=== PATIENT | male | born 1965 | race African-American/Black ===

== ENCOUNTER 2017-09-15 23:46 | Emergency (ER) | payer SELFPAY, OTHER ==
[2017-09-16] MEDS: cefTRIAXone IM 1 GM VIAL IM (00:29)
== END 2017-09-16 00:37 | disposition home or self-care (01) ==
LOC: ER 23:46
DX: J20.9 Acute bronchitis, unspecified (principal); I10 Essential (primary) hypertension
CPT/HCPCS: 96372; 99283-25; J0696

== ENCOUNTER 2018-06-04 00:49 | Emergency (ER) | payer SELFPAY ==
[~2018-06-04] VITALS: Ht 177.8 cm; Wt 113.4 kg
[2018-06-04 00:49] VITALS: BP 205/125
[~2018-06-04 00:49] MED LIST: AZIT250T6 PO; BENZ100C PO; HYDR-2758 PO; PRED20TA PO
[2018-06-04] MEDS ORDERED: PROM118S5 PO (01:25)
[2018-06-04] MEDS ORDERED: AZIT250T PO (01:25)
[2018-06-04] MEDS ORDERED: LORA10TA3 PO (01:25)
--- NOTE | 2018-06-04 04:14 | PHYS DOC ---
Past Medical History Past Medical History: Hypertension Past Surgical History: No Surgical History Alcohol Use: None Drug Use: None Adult General Chief Complaint Chief Complaint: SORE THROAT HPI HPI Patient is a 53 year old female who presents with sore throat, nasal congestion , rhinorrhea and right ear pain. Symptom onset was 2 days ago. No fever chills, nausea vomiting or sweats. No dysphagia or dysphonia or drooling. Patient has been taking gapb-lje-tcsrcpu cough medication with minimal relief. Of note, patient noted to be hypertensive 200s over low 100s. Patient states his blood pressure is normally well controlled and he is compliant with his lisinopril. Denies chest pain or shortness of breath. [] Review of Systems Review of Systems ROS as per HPI All other systems were reviewed and found to be within normal limits, except as documented in this note. Allergies Allergies Allergies Coded Allergies Type Severity Reaction Last Updated Verified No Known Drug Allergies 02/06/16 No Physical Exam Physical Exam Constitutional: Well developed, well nourished, no acute distress, non-toxic appearance. [] HENT: Normocephalic, atraumatic, bilateral external ears normal, oropharynx moist, a oropharyngeal erythema, no peritonsillar have access or uvula deviation. [] Eyes: PERRLA, EOMI, conjunctiva normal. [] Neck: Normal range of motion, no tenderness, no lymphadenopathy. [] Cardiovascular:Heart rate regular rhythm, no murmur. [] Lungs & Thorax: Bilateral breath sounds clear to auscultation. [] Abdomen: Bowel sounds normal, soft, no tenderness. [] Skin: Warm, dry [] Back: No tenderness, no CVA tenderness. [] Extremities: No tenderness, no cyanosis, no clubbing, ROM intact, no edema. [] Neurologic: Alert and oriented X 3, normal motor function, normal sensory function, no focal deficits noted. [] Psychologic: Affect normal, judgement normal, mood normal. [] Current Patient Data Vital Signs Vital Signs Date Time Temp Pulse Resp B/P (MAP) Pulse Ox O2 Delivery O2 Flow Rate FiO2 06/04/18 00:49 98.7 89 18 205/125 (151) 99 Room Air 98.7 EKG EKG [] Radiology/Procedures Radiology/Procedures [] Course & Med Decision Making Course & Med Decision Making Pertinent Labs and Imaging studies reviewed. (See chart for details) [Acute pharyngitis. Patient instructed to discontinue blood pressure medication take newly prescribed medications as directed and follow-up with PCP for reevaluation. Return precautions reviewed.] Gloria Disclaimer Gloria Disclaimer This electronic medical record was generated, in whole or in part, using a voice recognition dictation system. Departure Departure Impression: Primary Impression: Pharyngitis Disposition: HOME, SELF-CARE Condition: GOOD Patient Instructions: Sore Throat, Lauy-lz-Vpis Additional Instructions: Please increase fluids and take medications as directed. Avoid OTC cough medications as these may have and adverse impact on your blood pressure. Follow up with your PCP in 2-3 days for re-evaluation and to recheck blood pressure. Scripts Azithromycin (ZITHROMAX) 250 Mg Tablet 1 PKG PO UD, #6 TAB 2 pills by mouth day 1, one pill by mouth days 2 through 5 Prov: RADHA BETTENCOURT DO 06/04/18 Loratadine (LORATADINE) 10 Mg Tablet 1 TAB PO DAILY, #30 TAB 0 Refills Prov: RADHA BETTENCOURT DO 06/04/18 Promethazine Hcl/Codeine (PROMETHAZINE-CODEINE SYRUP) 118 Ml Syrup 5 ML PO Q4-6HRS, #120 ML Prov: RADHA BETTENCOURT DO 06/04/18 RADHA BETTENCOURT DO Jun 04, 2018 04:14
== END 2018-06-04 01:30 | disposition home or self-care (01) ==
LOC: ER 00:49
DX: J02.9 Acute pharyngitis, unspecified (principal); H92.01 Otalgia, right ear; I10 Essential (primary) hypertension
CPT/HCPCS: 99283

== ENCOUNTER 2018-06-09 19:27 | Emergency (ER) | payer SELFPAY ==
[~2018-06-09] VITALS: Ht 177.8 cm; Wt 113.4 kg
[~2018-06-09 19:27] MED LIST changes: +AZIT250T PO; +LORA10TA3 PO; +PROM118S5 PO
[2018-06-09 19:39] VITALS: BP 189/106
--- NOTE | 2018-06-09 20:09 | PHYS DOC ---
Past Medical History Past Medical History: Hypertension Past Surgical History: No Surgical History Alcohol Use: None Drug Use: None Adult General Chief Complaint Chief Complaint: Congestion HPI HPI Patient is a 53 year old male with history of hypertension who presents today complaining of cough and congestion that began a week ago, patient states he feels congested in his ears as well. Patient states he was seen in the ED 5 days ago, he states he was started on the Z-Lavell. He states he has not seen any improvement on his symptoms. Denies any fever. Denies any chest pain or shortness of breath. Denies any history of smoking. Review of Systems Review of Systems Constitutional: Denies fever or chills [] Eyes: Denies change in visual acuity, redness, or eye pain [] HENT: Reports nasal congestion, denies sore throat [] Respiratory: Reports cough, denies shortness of breath [] Cardiovascular: No additional information not addressed in HPI [] GI: Denies abdominal pain, nausea, vomiting, bloody stools or diarrhea [] : Denies dysuria or hematuria [] Musculoskeletal: Denies back pain or joint pain [] Integument: Denies rash or skin lesions [] Neurologic: Denies headache, focal weakness or sensory changes [] All other systems were reviewed and found to be within normal limits, except as documented in this note. Allergies Allergies Allergies Coded Allergies Type Severity Reaction Last Updated Verified No Known Drug Allergies 02/06/16 No Physical Exam Physical Exam Constitutional: Well developed, well nourished, no acute distress, non-toxic appearance. [] HENT: Normocephalic, atraumatic, bilateral external ears normal, oropharynx moist, no oral exudates, nose normal. [] Eyes: PERRLA, EOMI, conjunctiva normal, no discharge. [] Neck: Normal range of motion, no tenderness, supple, no stridor. [] Cardiovascular:Heart rate regular rhythm, no murmur [] Lungs & Thorax: Bilateral breath sounds clear to auscultation [] Abdomen: Bowel sounds normal, soft, no tenderness, no masses, no pulsatile masses. [] Skin: Warm, dry, no erythema, no rash. [] Back: No tenderness, no CVA tenderness. [] Extremities: No tenderness, no cyanosis, no clubbing, ROM intact, no edema. [] Neurologic: Alert and oriented X 3, normal motor function, normal sensory function, no focal deficits noted. [] Psychologic: Affect normal, judgement normal, mood normal. [] Current Patient Data Vital Signs Vital Signs Date Time Temp Pulse Resp B/P (MAP) Pulse Ox O2 Delivery O2 Flow Rate FiO2 06/09/18 19:39 95.8 71 16 189/106 (133) 99 Room Air 95.8 EKG EKG [] Radiology/Procedures Radiology/Procedures [] Course & Med Decision Making Course & Med Decision Making Pertinent Labs and Imaging studies reviewed. (See chart for details) This is a 53-year-old male patient presenting to the ED today complaining of cough congestion and bilateral ear pain that began a week ago, patient was seen in the ED 5 days ago, was given azithromycin. He just finished it yesterday. Symptoms are still present. His lungs are clear on physical exam. He is afebrile. Chest xray interpreted by Dr. Gold is negative negative for any acute findings. Patient's symptoms are likely viral. Discharged with prednisone, Tessalon Perles and albuterol inhaler. Instructed to follow-up with the PCP in 1 -2 weeks. Blood pressure was 189/106 hx of HTN no cardiac or neurological symptoms. Patient was reminded to make sure he is taking his blood pressure medications. Follow-up with his PCP for blood pressure monitoring as well as medical care. Dragon Disclaimer Dragon Disclaimer This electronic medical record was generated, in whole or in part, using a voice recognition dictation system. Departure Departure Impression: Primary Impression: Acute bronchitis Additional Impressions: URI (upper respiratory infection) HTN (hypertension) Disposition: 01 HOME, SELF-CARE Condition: STABLE Referrals: NO PCP (PCP) follow up next week Patient Instructions: Acute Bronchitis, [id number], Hypertension, Upper Respiratory Infection, Adult, [id number] Additional Instructions: You were evaluated in the emergency room with symptoms consistent of a viral illness. Take the prescribed medications as ordered. Your blood pressure was also high in the emergency room at 189/102, normal blood pressure is less than 120/80. Ensure you are taking your blood pressure medicines. Follow-up with your doctor next week. Come back to the ED at any point symptoms worsen. Scripts Albuterol Sulfate (VENTOLIN HFA INHALER) 18 Gm Hfa.aer.ad 2 PUFF INH Q4HRS for FOR ASTHMA, #1 INHALER 0 Refills Prov: MIKE WILLIAM APRN 06/09/18 Benzonatate (TESSALON PERLE) 100 Mg Capsule 1 CAP PO TID, #30 CAP Prov: ISAAKCAROLYNNMIKE GIANCARLO 06/09/18 Prednisone (PREDNISONE) 50 Mg Tablet 1 TAB PO DAILY, #5 TAB Prov: MIKE WILLIAM APRN 06/09/18 Problem Qualifiers Primary Impression: Acute bronchitis Bronchitis organism: unspecified organism Qualified Codes: J20.9 - Acute bronchitis, unspecified Additional Impressions: URI (upper respiratory infection) URI type: unspecified URI Qualified Codes: J06.9 - Acute upper respiratory infection, unspecified HTN (hypertension) Hypertension type: unspecified Qualified Codes: I10 - Essential (primary) hypertension MIKE WILLIAM APRN Jun 09, 2018 20:09
[2018-06-09] MEDS ORDERED: PRED50TA PO (20:26)
[2018-06-09] MEDS ORDERED: VENTOLIN HFA18 GM INH (20:26)
[2018-06-09] MEDS ORDERED: BENZ100C PO (20:26)
--- NOTE | 2018-06-09 22:20 | RAD ---
PROCEDURE: CHEST PA LATERAL CLINICAL INDICATION: ER PATIENT. PRODUCTIVE COUGH WITH YELLOW/GREEN SPUTUM. Hx HTN. PRIOR XRAY. COMPARISON: 02/05/2018 FINDINGS: No pneumothorax identified. Cardiac and mediastinal contours unremarkable. No pulmonary consolidation or acute airspace disease. No acute osseous abnormalities identified. IMPRESSION: No pulmonary consolidation or acute airspace disease. Electronically signed by: Sid Anne DO (06/09/2018 10:17 PM) [facility]
== END 2018-06-09 20:44 | disposition home or self-care (01) ==
LOC: ER 19:27
DX: J20.9 Acute bronchitis, unspecified (principal); I10 Essential (primary) hypertension
CPT/HCPCS: 71046; 99283

== ENCOUNTER 2018-10-29 03:09 | Emergency (ER) | payer SELFPAY ==
[~2018-10-29] VITALS: Ht 177.8 cm; Wt 113.4 kg
[~2018-10-29 03:09] MED LIST changes: -HYDR-2758 PO; +HYDR-2761 PO; +PRED50TA PO; +VENTOLIN HFA18 GM INH
[2018-10-29 03:10] VITALS: BP 157/83
[2018-10-29] MEDS ORDERED: GUAI120L35 PO (03:33)
[2018-10-29] MEDS ORDERED: PRED20TA PO (03:33)
--- NOTE | 2018-10-29 03:33 | PHYS DOC ---
Past Medical History Past Medical History: Hypertension Past Surgical History: No Surgical History Alcohol Use: None Drug Use: None Adult General Chief Complaint Chief Complaint: COUGH HPI HPI 53-year-old male presents with a several day history of cough and congestion. He states the cough is keeping him up at night. He also complains of ear fullness scratchy throat. He states he's been using his albuterol inhaler with no success at suppressing the cough.[] Review of Systems Review of Systems Constitutional: Denies fever or chills [] Eyes: Denies change in visual acuity, redness, or eye pain [] HENT: Denies nasal congestion or sore throat [] Respiratory: Per history of present illness[] Cardiovascular: No additional information not addressed in HPI [] GI: Denies abdominal pain, nausea, vomiting, bloody stools or diarrhea [] : Denies dysuria or hematuria [] Musculoskeletal: Denies back pain or joint pain [] Integument: Denies rash or skin lesions [] Neurologic: Denies headache, focal weakness or sensory changes [] Endocrine: Denies polyuria or polydipsia [] All other systems were reviewed and found to be within normal limits, except as documented in this note. Allergies Allergies Allergies Coded Allergies Type Severity Reaction Last Updated Verified No Known Drug Allergies 02/06/16 No Physical Exam Physical Exam Constitutional: Well developed, well nourished, no acute distress, non-toxic appearance. [] HENT: Normocephalic, atraumatic, bilateral external ears normal, oropharynx moist, no oral exudates, nose normal. [] Eyes: PERRLA, EOMI, conjunctiva normal, no discharge. [] Neck: Normal range of motion, no tenderness, supple, no stridor. [] Cardiovascular:Heart rate regular rhythm, no murmur [] Lungs & Thorax: Bilateral breath sounds clear to auscultation [] Abdomen: Bowel sounds normal, soft, no tenderness, no masses, no pulsatile masses. [] Skin: Warm, dry, no erythema, no rash. [] Back: No tenderness, no CVA tenderness. [] Extremities: No tenderness, no cyanosis, no clubbing, ROM intact, no edema. [] Neurologic: Alert and oriented X 3, normal motor function, normal sensory function, no focal deficits noted. [] Psychologic: Affect normal, judgement normal, mood normal. [] Current Patient Data Vital Signs Vital Signs Date Time Temp Pulse Resp B/P (MAP) Pulse Ox O2 Delivery O2 Flow Rate FiO2 10/29/18 03:10 98.2 83 18 157/83 (107) 100 Room Air 98.2 EKG EKG [] Radiology/Procedures Radiology/Procedures [] Course & Med Decision Making Course & Med Decision Making Pertinent Labs and Imaging studies reviewed. (See chart for details) [] Dragon Disclaimer Dragon Disclaimer This electronic medical record was generated, in whole or in part, using a voice recognition dictation system. Departure Departure Impression: Primary Impression: Acute bronchitis Disposition: HOME, SELF-CARE Condition: STABLE Referrals: KATE SEE ENGLISH AND READING INSTRUCTOR (PCP) Patient Instructions: Cough, Adult Additional Instructions: Return to the emergency department any new or concerning symptoms Scripts Guaifenesin/Codeine Phosphate (Codeine-Guaifen 10-100 mg/5 ml) 120 Ml Liquid 10 ML PO Q8HRS for COUGH, #120 LIQUID Prov: VIRGINIA ZHONG DO 10/29/18 Prednisone (PREDNISONE) 20 Mg Tablet 3 TAB PO DAILY, #15 TAB Prov: VIRGINIA ZHONG DO 10/29/18 Problem Qualifiers Primary Impression: Acute bronchitis Bronchitis organism: unspecified organism Qualified Codes: J20.9 - Acute bronchitis, unspecified VIRGINIA ZHONG DO Oct 29, 2018 03:33
[2018-10-29] MEDS ORDERED: methylPREDNISolone SOD SUCC PF 125 MG/2 ML VIAL. IM ONE (04:00)
== END 2018-10-29 03:40 | disposition home or self-care (01) ==
LOC: ER 03:09
DX: J20.9 Acute bronchitis, unspecified (principal); I10 Essential (primary) hypertension
CPT/HCPCS: 99283

== ENCOUNTER 2020-02-27 05:25 | Emergency (ER) | payer SELFPAY ==
[~2020-02-27] VITALS: Ht 177.8 cm; Wt 115.9 kg
[~2020-02-27 05:25] MED LIST changes: +GUAI120L35 PO
[2020-02-27 05:31] VITALS: BP 149/97
--- NOTE | 2020-02-27 06:06 | PHYS DOC ---
Past Medical History Past Medical History: Hypertension Past Surgical History: No Surgical History Smoking Status: Never Smoker Alcohol Use: None Drug Use: None General Adult EDM: Chief Complaint: SHOUDLER pain HPI: HPI: Patient is a 54 year old male who presents with a chief complaint of 1 week of aching burning left neck pain that radiates left arm. Pain is constant but worse with certain activities such as moving her neck and rest. Pain is better with palpation and certain range of motion. Patient has some intermittent tingling in his hand. No motor weakness. No chest pain or shortness of breath. Patient has some pain in his upper back. Patient denies any fever. Patient denies any trauma. Pain is currently moderate in intensity and can be severe at times. Review of Systems: Review of Systems: Constitutional: Denies fever or chills. [] Eyes: Denies change in visual acuity. [] HENT: Denies nasal congestion or sore throat. [] Respiratory: Denies cough or shortness of breath. [] Cardiovascular: Denies chest pain or edema. [] GI: Denies abdominal pain, nausea, vomiting, bloody stools or diarrhea. [] : Denies dysuria. [] Musculoskeletal: Complains of neck pain and upper back pain Integument: Denies rash. [] Neurologic: Denies headache, focal weakness but has some tingling in the left arm Endocrine: Denies polyuria or polydipsia. [] Lymphatic: Denies swollen glands. [] Psychiatric: Denies depression or anxiety. [] Heart Score: Risk Factors: Risk Factors: DM, Current or recent (<one month) smoker, HTN, HLP, family history of CAD, obesity. Risk Scores: Score 0 - 3: 2.5% MACE over next 6 weeks - Discharge Home Score 4 - 6: 20.3% MACE over next 6 weeks - Admit for Clinical Observation Score 7 - 10: 72.7% MACE over next 6 weeks - Early Invasive Strategies Allergies: Allergies: Allergies Coded Allergies Type Severity Reaction Last Updated Verified No Known Drug Allergies 02/06/16 No Physical Exam: PE: Constitutional: Well developed, well nourished, no acute distress, non-toxic appearance. [] HENT: Normocephalic, atraumatic, bilateral external ears normal, no trismus nose normal. [] Eyes: PERRLA, EOMI, conjunctiva normal, no discharge. [] Neck: Normal range of motion, no tenderness, supple, no stridor. [] Cardiovascular:Heart rate regular rhythm, peripheral pulses intact, cap refill normal. Radial pulse normal Lungs & Thorax: Bilateral breath sounds clear no respiratory distress Abdomen: soft, no tenderness, no masses, no pulsatile masses. [] Skin: Warm, dry, no erythema, no rash. [] Back: No tenderness, no CVA tenderness. [] Extremities: No tenderness, no cyanosis, no clubbing, ROM intact, no edema. [] Neurologic: Alert and oriented X 3, normal motor function, normal sensory function, no focal deficits noted. [] Psychologic: Affect normal, judgement normal, mood normal. [] Current Patient Data: Vital Signs: Vital Signs Date Time Temp Pulse Resp B/P (MAP) Pulse Ox O2 Delivery O2 Flow Rate FiO2 02/27/20 05:31 97.9 72 16 149/97 (114) 97 Room Air 97.9 EKG: EKG: [] EKG interpreted by me normal sinus rhythm with a rate of 62 normal axis normal intervals normal ST segments Radiology/Procedures: Radiology/Procedures: [] Course & Med Decision Making: Course & Med Decision Making Pertinent Labs and Imaging studies reviewed. (See chart for details) [] 54-year-old male presents with 1 week of atraumatic left shoulder pain. Patient has radicular symptoms to the left arm. Doubt acute coronary syndrome. EKG is unremarkable. Symptoms not consistent with thoracic aortic dissection. Most likely the patient has a cervical radiculopathy. Will put patient on anti-inflammatories and muscle relaxers and follow-up with primary care doctor. Return precautions given. Gloria Disclaimer: Gloria Disclaimer: This electronic medical record was generated, in whole or in part, using a voice recognition dictation system. Departure Departure Impression: Primary Impression: Cervical radiculopathy Disposition: 01 HOME, SELF-CARE Condition: STABLE Referrals: KATE SEE BINDING MACHINE OPERATOR (PCP) 2-3 days Patient Instructions: Cervical Radiculopathy Additional Instructions: EMERGENCY DEPARTMENT GENERAL DISCHARGE INSTRUCTIONS THANK YOU for coming to [facility] Emergency Department (ED) today and trusting us with your care. We trust that you had a positive experience in our Emergency Department. If you wish to speak to the department Management you can contact the head of commission department at . YOUR FOLLOW UP INSTRUCTIONS ARE FOLLOWS: Do you have a private doctor? If you do not have a private doctor, please ask for a resource list of physicians or clinics that may be able to assist you with follow up care. The Emergency Physician has interpreted your x-rays. The X-ray specialist will also review them. If there is a change in the findings you will be notified in 48 hours when at all possible. A lab test or lab culture may have been done, your results will be reviewed and you will be notified if you need a change in treatment. ADDITIONAL INSTRUCTIONS AND INFORMATION Your care today has been supervised by a physician who is specially trained in emergency care. Many problems require more than one evaluation for a complete diagnosis and treatment. We recommend that you schedule your follow up appointment as recommended to ensure complete treatment of your illness or injury. If you are unable to obtain follow up care and continue to have a problem, or if your condition worsens we recommend that you return to the ED. We are not able to safely determine your condition over the phone nor are we able to give sound medical advice over the phone. For these safety reasons, if you call for medical advice we will ask you to come to the ED for further evaluation If you have any questions regarding these discharge instructions please call the ED at . SAFETY INFORMATION In the interest of safety, wellness, and injury prevention; we encourage you to wear your seatbelt, if you smoke; quit smoking, and we encourage your family to use protective helmet for bicycling and other sporting events that present an increased risk for head injury. IF YOUR SYMPTOMS WORSEN OR NEW SYMPTOMS DEVELOP, OR YOU HAVE CONCERNS ABOUT YOUR CONDITION; OR IF YOUR CONDITION WORSENS WHILE YOU ARE WAITING FOR YOUR FOLLOW UP APPOINTMENT; EITHER CONTACT YOUR PRIMARY CARE DOCTOR, THE PHYSICIAN WHOSE NAME AND NUMBER YOU WERE GIVEN, OR RETURN TO THE ED IMMEDIATELY. Scripts Ibuprofen (IBUPROFEN) 600 Mg Tablet 600 MG PO PRN Q8HRS PRN for MUSCLE PAIN, #30 TAB Prov: LISA VALDEZ MD 02/27/20 Cyclobenzaprine Hcl (CYCLOBENZAPRINE HCL) 10 Mg Tablet 1 TAB PO TID PRN for MUSCLE SPASMS, #15 TAB Prov: LISA VALDEZ MD 02/27/20 Justicifation of Admission Dx: Justifications for Admission: Justification of Admission Dx: N/A LISA VALDEZ MD Feb 27, 2020 06:06
[2020-02-27] MEDS ORDERED: KETOROLAC 60 MG/2 ML VIAL. IM ONE (06:15)
[2020-02-27] MEDS ORDERED: CYCL10TA2 PO (06:28)
[2020-02-27] MEDS ORDERED: IBUP-1007 PO (06:28)
--- NOTE | 2020-02-29 05:05 | EKG ---
[facility] [address] [place] [address] Test Date: 2020-02-27 Test Time: 06:40:01 Pat Name: TANIA REEVES Department: Room: Gender: [employer] Manager: : 1965 Requested By: LISA VALDEZ Order Number: [id number] Reading MD: Measurements Intervals Lloyd Rate: 62 P: 37 MA: 158 QRS: 24 QRSD: 80 T: 3 QT: 382 QTc: 390 Interpretive Statements SINUS RHYTHM QRS(T) CONTOUR ABNORMALITY CONSIDER ANTEROLATERAL MYOCARDIAL DAMAGE POSSIBLY ABNORMAL ECG RI6.01 No previous ECG available for comparison
== END 2020-02-27 07:01 | disposition home or self-care (01) ==
LOC: ER 05:25
DX: M54.12 Radiculopathy, cervical region (principal); M25.512 Pain in left shoulder; R00.2 Palpitations; M54.6 Pain in thoracic spine; I10 Essential (primary) hypertension
CPT/HCPCS: 99283; J1885; 93005

== ENCOUNTER 2021-01-14 22:39 | Emergency (ER) | payer SELFPAY ==
[~2021-01-14] VITALS: Ht 177.8 cm; Wt 115.0 kg
[~2021-01-14 22:39] MED LIST changes: +CYCL10TA2 PO; +IBUP-1007 PO
[2021-01-14 23:58] VITALS: BP 145/94
[2021-01-15] MEDS ORDERED: OXYC1TAB15 PO (00:43)
[2021-01-15] MEDS ORDERED: MELO15TA23 PO (00:43)
--- NOTE | 2021-01-15 00:44 | ED.ADGEN ---
Past Medical History Past Medical History: Hypertension Past Surgical History: No Surgical History Smoking Status: Never Smoker Alcohol Use: None Drug Use: None General Adult EDM: Chief Complaint: MULTIPLE COMPLAINTS HPI: HPI: Patient is a 55 year old male coming in for left shoulder pain. Has had the pain for the past week and has seen his primary care provider and was given cyclobenzaprine and told to take ibuprofen. Patient's last dose was yesterday. He states the last relaxer is not helping. Denies any trauma. But states he has been lifting weights recently. No other complaints. Review of Systems: Review of Systems: All other systems within normal limits except for as noted in the HPI Allergies: Allergies: Allergies Coded Allergies Type Severity Reaction Last Updated Verified No Known Drug Allergies 02/06/16 No Physical Exam: PE: Constitutional: Well developed, well nourished, no acute distress, non-toxic appearance. [] HENT: Normocephalic, atraumatic, bilateral external ears normal, nose normal. [] Eyes: PERRLA, conjunctiva normal, no discharge. [] Neck: No rigidity, supple, no stridor. No C-spine tenderness [] Cardiovascular: Regular rate and rhythm, brisk cap refill [] Lungs & Thorax: Non labored symmetric respirations, no tachypnea or respiratory distress [] Abdomen: Soft, nondistended. Skin: Warm, dry, no erythema, no rash. [] Back: Unremarkable, tenderness and firmness over trapezius muscle on the left. Extremities: No deformities, range of motion grossly intact, no lower extremity edema [] Neurologic: Alert and oriented X 3, no focal deficits noted. [] Psychologic: Affect normal, judgement normal, mood normal. [] Current Patient Data: Vital Signs: Vital Signs Date Time Temp Pulse Resp B/P (MAP) Pulse Ox O2 Delivery O2 Flow Rate FiO2 01/14/21 23:58 97.7 86 18 145/94 (111) 97 Room Air 97.7 EKG: EKG: [] Heart Score: C/O Chest Pain: No Risk Factors: Risk Factors: DM, Current or recent (<one month) smoker, HTN, HLP, family history of CAD, obesity. Risk Scores: Score 0 - 3: 2.5% MACE over next 6 weeks - Discharge Home Score 4 - 6: 20.3% MACE over next 6 weeks - Admit for Clinical Observation Score 7 - 10: 72.7% MACE over next 6 weeks - Early Invasive Strategies Radiology/Procedures: Radiology/Procedures: [] Course & Med Decision Making: Course & Med Decision Making Pertinent Labs and Imaging studies reviewed. (See chart for details) [] Dragon Disclaimer: Gloria Disclaimer: This electronic medical record was generated, in whole or in part, using a voice recognition dictation system. Departure Departure Impression: Primary Impression: Trapezius muscle spasm Disposition: HOME / SELF CARE / HOMELESS Condition: STABLE Referrals: KATE SEE ULTRASOUND TESTER (PCP) Patient Instructions: Muscle Strain Scripts Oxycodone/Apap 5-325 (PERCOCET 5-325 MG TABLET ) 1 Each Tablet 1 TAB PO PRN BID PRN for PAIN MDD 2 Tablet(s) for 5 Days, #10 TAB 0 Refills Prov: ERMIAS MCKEON MD 01/15/21 Meloxicam (MELOXICAM) 15 Mg Tablet 1 TAB PO DAILY for 30 Days, #30 TAB 0 Refills Prov: ERMIAS MCKEON MD 01/15/21 ERMIAS MCKEON MD Jan 15, 2021 00:44
[2021-01-15] MEDS ORDERED: KETOROLAC 60 MG/2 ML VIAL. IM ONE (00:45)
== END 2021-01-15 01:06 | disposition home or self-care (01) ==
LOC: ER 22:39
DX: M62.838 Other muscle spasm (principal); M25.512 Pain in left shoulder; I10 Essential (primary) hypertension
CPT/HCPCS: 96372; 99283; J1885